=== PATIENT | male | born 1950 | race Caucasian/White ===

== ENCOUNTER 2016-10-21 18:17 | Emergency (ER) | payer MEDICAID, MEDICARE ==
[~2016-10-21] VITALS: Ht 167.6 cm; Wt 63.0 kg
[~2016-10-21 18:17] MED LIST: NAPROXEN PO
[2016-10-21] MEDS ORDERED: ACETAMINOPHEN 325MG TABLET PO ONE (19:30)
[2016-10-21 22:12] VITALS: BP 126/69
== END 2016-10-21 22:35 | disposition home or self-care (01) ==
LOC: ER 18:31
DX: S09.90XA Unspecified injury of head, initial encounter (principal); R10.9 Unspecified abdominal pain; F17.200 Nicotine dependence, unspecified, uncomplicated; Y04.2XXA Assault by strike against or bumped into by another person, initial encounter; Y93.89 Activity, other specified; Y92.89 Other specified places as the place of occurrence of the external cause; Y99.8 Other external cause status
CPT/HCPCS: 70450; 71010; 93005; 99284

== ENCOUNTER 2017-03-19 22:25 | Emergency (ER) | payer MEDICAID, MEDICARE ==
[~2017-03-19] VITALS: Ht 162.6 cm; Wt 70.0 kg
[2017-03-20] MEDS ORDERED: IBUPROFEN 600MG TABLET PO ONE (00:30)
[2017-03-20 01:30] VITALS: BP 96/56
== END 2017-03-20 01:47 | disposition home or self-care (01) ==
LOC: ER 22:25
DX: M25.572 Pain in left ankle and joints of left foot (principal); E11.9 Type 2 diabetes mellitus without complications; F17.200 Nicotine dependence, unspecified, uncomplicated; E78.00 Pure hypercholesterolemia, unspecified
CPT/HCPCS: 73610; 99284

== ENCOUNTER 2017-11-16 22:03 | Emergency (ER) | payer MEDICARE, OTHER ==
[~2017-11-16] VITALS: Ht 162.6 cm; Wt 77.6 kg
[2017-11-17 03:08] VITALS: BP 129/88
== END 2017-11-17 03:08 | disposition home or self-care (01) ==
LOC: ER 22:03
DX: S01.81XA Laceration without foreign body of other part of head, initial encounter (principal); F10.20 Alcohol dependence, uncomplicated; I10 Essential (primary) hypertension; Y08.89XA Assault by other specified means, initial encounter; Y93.01 Activity, walking, marching and hiking; Y92.89 Other specified places as the place of occurrence of the external cause
CPT/HCPCS: 12011; 70450; 70486; 99284

== ENCOUNTER 2018-02-21 19:19 | Emergency (ER) | payer SELFPAY ==
[~2018-02-21] VITALS: Ht 162.6 cm; Wt 72.0 kg
[2018-02-21] MEDS ORDERED: ACETAMINOPHEN 325MG TABLET PO ONE (20:00)
[2018-02-21 22:13] VITALS: BP 107/89
== END 2018-02-21 22:15 | disposition home or self-care (01) ==
LOC: ER 19:19
DX: S00.83XA Contusion of other part of head, initial encounter (principal); S90.02XA Contusion of left ankle, initial encounter; S60.211A Contusion of right wrist, initial encounter; E11.9 Type 2 diabetes mellitus without complications; I10 Essential (primary) hypertension; Z87.891 Personal history of nicotine dependence; W10.8XXA Fall (on) (from) other stairs and steps, initial encounter; Y93.89 Activity, other specified; Y92.018 Other place in single-family (private) house as the place of occurrence of the external cause
CPT/HCPCS: 73110; 73610; 99284

== ENCOUNTER 2018-06-20 08:51 | Emergency (ER) | payer SELFPAY ==
[~2018-06-20] VITALS: Ht 162.6 cm; Wt 71.0 kg
[2018-06-20 14:35] VITALS: BP 133/66
== END 2018-06-20 14:38 | disposition home or self-care (01) ==
LOC: ER 08:51
DX: S00.83XA Contusion of other part of head, initial encounter (principal); S50.12XA Contusion of left forearm, initial encounter; S50.812A Abrasion of left forearm, initial encounter; Y00.XXXA Assault by blunt object, initial encounter; Y93.89 Activity, other specified; Y92.018 Other place in single-family (private) house as the place of occurrence of the external cause
CPT/HCPCS: 73090; 73110; 99284

== ENCOUNTER 2018-10-05 20:41 | Emergency (ER) | payer SELFPAY ==
[~2018-10-05] VITALS: Ht 152.4 cm; Wt 70.0 kg
[2018-10-05] MEDS ORDERED: MORPHINE SULFATE 4 MG/ML CPJ (NOT FOR IM USE) IV ONE (21:30)
[2018-10-05] MEDS ORDERED: LIDOCAINE 1%/EPI 1:100,000 10 ML VIAL IJ ONE (21:45)
[2018-10-05] MEDS ORDERED: BACITRACIN ZINC OINT UDPKT TOP ONE (21:45)
[2018-10-05] MEDS ORDERED: LIDOCAINE HCL/EPINEPHRINE 1%-EPI 1:100,000 20 ML VIAL INFIL NR (23:00)
[2018-10-05] MEDS ORDERED: BACITRACIN 15GM TUBE TOP ONE (23:45)
[2018-10-06 03:03] VITALS: BP 123/68
== END 2018-10-06 03:08 | disposition home or self-care (01) ==
LOC: ER 21:45
DX: S06.9X1A Unspecified intracranial injury with loss of consciousness of 30 minutes or less, initial encounter (principal); S01.01XA Laceration without foreign body of scalp, initial encounter; S50.812A Abrasion of left forearm, initial encounter; Y00.XXXA Assault by blunt object, initial encounter; Y93.89 Activity, other specified; Y92.89 Other specified places as the place of occurrence of the external cause
CPT/HCPCS: 12002; 70450; 73552; 96374; 99284; J2270; J3490

== ENCOUNTER 2018-10-07 09:04 | Emergency (ER) | payer SELFPAY ==
[~2018-10-07] VITALS: Ht 162.6 cm; Wt 82.0 kg
[2018-10-07] MEDS ORDERED: SODIUM CHLORIDE 0.9% 1,000 ML IV ONE (11:44)
[2018-10-07] MEDS ORDERED: ONDANSETRON HCL 4MG/2ML INJ IV STA (11:44)
[2018-10-07 12:05] LABS: BASOPHILS % 0.3 % (0.0-2.0); EOSINOPHILS % 0.6 % (0.0-5.0); HEMATOCRIT. 39.9 % (42.0-52.0); HEMOGLOBIN. 13.7 g/dL (14.0-18.0); MEAN CORPUSCULAR VOLUME 93.4 fL (80.0-94.0); MEAN PLATELET VOLUME 8.1 fl (7.4-10.4); MONOCYTES % 7.7 % (2.0-8.0); NEUTROPHILS % 65.4 % (40.0-76.0); PLATELET 261 x1000/uL (130-400); RED BLOOD CELL COUNT 4.27 mill/uL (4.7-6.1); RED CELL DISTRIBUTION WIDTH 14.3 % (11.6-14.6)
[2018-10-07 12:11] LABS: CHLORIDE 106 mEq/L (98-107); INR 0.9; PROTHROMBIN TIME 9.7 sec (9.6-11.0)
[2018-10-07 12:15] LABS: ETHANOL BLOOD < 10 mg/dL
[2018-10-07 14:07] VITALS: BP 137/84
== END 2018-10-07 14:07 | disposition home or self-care (01) ==
LOC: ER 09:04
DX: S06.0X0A Concussion without loss of consciousness, initial encounter (principal); S01.01XD Laceration without foreign body of scalp, subsequent encounter; R42 Dizziness and giddiness; R11.2 Nausea with vomiting, unspecified; X58.XXXA Exposure to other specified factors, initial encounter; Y93.89 Activity, other specified; Y92.89 Other specified places as the place of occurrence of the external cause; Y99.8 Other external cause status
CPT/HCPCS: 36415; 70450; 80053; 80320; 85025; 85610; 96361; 96374; 99284; J2405; J7030; G0480

== ENCOUNTER 2018-10-28 22:29 | Emergency (ER) | payer MEDICARE ==
[~2018-10-28] VITALS: Ht 162.6 cm; Wt 80.0 kg
[2018-10-28 23:20] VITALS: BP 116/64
== END 2018-10-29 01:05 | disposition left against medical advice (07) ==
LOC: ER 22:29
DX: Z53.21 Procedure and treatment not carried out due to patient leaving prior to being seen by health care provider (principal)
CPT/HCPCS: 82962

== ENCOUNTER 2018-11-07 01:55 | Emergency (ER) | payer SELFPAY ==
[~2018-11-07] VITALS: Ht 162.6 cm; Wt 79.0 kg
[2018-11-07 02:13] VITALS: BP 104/68
[2018-11-07] MEDS ORDERED: IBUPROFEN 600MG TABLET PO STA (04:10)
== END 2018-11-07 06:34 | disposition left against medical advice (07) ==
LOC: ER 01:55
DX: S01.01XA Laceration without foreign body of scalp, initial encounter (principal); R51 Headache; Y93.E1 Activity, personal bathing and showering; Y92.091 Bathroom in other non-institutional residence as the place of occurrence of the external cause; M79.671 Pain in right foot
CPT/HCPCS: 99282

== ENCOUNTER 2018-11-24 21:00 | Emergency (ER) | payer MEDICARE ==
[~2018-11-24] VITALS: Ht 162.6 cm; Wt 72.0 kg
[2018-11-24 22:52] LABS: BASOPHILS % 0.6 % (0.0-2.0); EOSINOPHILS % 1.6 % (0.0-5.0); HEMATOCRIT. 39.3 % (42.0-52.0); HEMOGLOBIN. 13.7 g/dL (14.0-18.0); LYMPHOCYTES % 34.7 % (20.0-50.0); MEAN CORPUSCULAR HEMOGLOBIN 32.7 pg (28.0-32.0); MEAN PLATELET VOLUME 7.4 fl (7.4-10.4); MONOCYTES % 7.2 % (2.0-8.0); NEUTROPHILS % 55.9 % (40.0-76.0); PLATELET 257 x1000/uL (130-400); RED BLOOD CELL COUNT 4.18 mill/uL (4.7-6.1); RED CELL DISTRIBUTION WIDTH 13.3 % (11.6-14.6)
[2018-11-24 22:56] LABS: CHLORIDE 109 mEq/L (98-107)
[2018-11-24 23:00] LABS: ETHANOL BLOOD 79 mg/dL
[2018-11-25 00:40] LABS: *AMPHETAMINES SCREEN URINE NEGATIVE (NEGATIVE); *BARBITURATES SCREEN URINE NEGATIVE (NEGATIVE); *BENZODIAZEPINES SCREEN URINE NEGATIVE (NEGATIVE)
[2018-11-25 00:41] LABS: *COCAINE SCREEN URINE NEGATIVE (NEGATIVE); CANNABINOID URINE SCREEN NEGATIVE (NEGATIVE); METHADONE URINE SCREEN NEGATIVE (NEGATIVE); OPIATES URINE SCREEN NEGATIVE (NEGATIVE); PHENCYCLIDINE URINE SCREEN NEGATIVE (NEGATIVE)
[2018-11-25] MEDS ORDERED: ACETAMINOPHEN 650MG/20.3ML UDC PO NR (01:30)
[2018-11-25 02:54] VITALS: BP 103/51
== END 2018-11-25 02:56 | disposition home or self-care (01) ==
LOC: ER 21:00
DX: F10.129 Alcohol abuse with intoxication, unspecified (principal); Y90.9 Presence of alcohol in blood, level not specified; F12.90 Cannabis use, unspecified, uncomplicated; F15.10 Other stimulant abuse, uncomplicated; F17.200 Nicotine dependence, unspecified, uncomplicated
CPT/HCPCS: 36415; 80305; 80320; 83880; 84484; 93005; 99283; 99284; G0480

== ENCOUNTER 2019-01-10 03:38 | Emergency (ER) | payer MEDICARE ==
[~2019-01-10] VITALS: Ht 162.6 cm; Wt 78.0 kg
[2019-01-10 04:19] VITALS: BP 96/56
== END 2019-01-10 06:20 | disposition left against medical advice (07) ==
LOC: ER 03:38
DX: Z53.21 Procedure and treatment not carried out due to patient leaving prior to being seen by health care provider (principal)

== ENCOUNTER 2019-02-20 17:13 | Inpatient (IN) | payer MEDICARE ==
[~2019-02-20] VITALS: Ht 162.6 cm; Wt 77.6 kg
[2019-02-20] MEDS ORDERED: insulin (17:35)
[2019-02-20 18:23] LABS: BASOPHILS % 0.3 % (0.0-2.0); EOSINOPHILS % 0.1 % (0.0-5.0); HEMATOCRIT. 34.7 % (42.0-52.0); HEMOGLOBIN. 11.8 g/dL (14.0-18.0); LYMPHOCYTES % 11.4 % (20.0-50.0); MEAN CORPUSCULAR VOLUME 94.2 fL (80.0-94.0); MEAN PLATELET VOLUME 7.4 fl (7.4-10.4); NEUTROPHILS % 77.2 % (40.0-76.0); PLATELET 343 x1000/uL (130-400); RED BLOOD CELL COUNT 3.68 mill/uL (4.7-6.1); RED CELL DISTRIBUTION WIDTH 13.1 % (11.6-14.6)
[2019-02-20 18:29] LABS: PROTHROMBIN TIME 10.6 sec (9.6-11.0)
[2019-02-20 18:31] LABS: CHLORIDE 104 mEq/L (98-107)
[2019-02-20 18:35] LABS: ETHANOL BLOOD < 10 mg/dL
[2019-02-20] MEDS ORDERED: SODIUM CHLORIDE 0.9% 1,000 ML IV ONE (19:15)
[2019-02-20 21:40] LABS: CLARITY URINE CLEAR (CLEAR); COLOR URINE YELLOW (YELLOW); KETONES URINE NEGATIVE (NEGATIVE); LEUKOCYTE ESTERASE URINE NEGATIVE (NEGATIVE); NITRITE URINE NEGATIVE (NEGATIVE); OCCULT BLOOD URINE NEGATIVE (NEGATIVE); PH URINE 5.5 (4.5-8.0); PROTEIN URINE NEGATIVE (NEGATIVE); SPECIFIC GRAVITY URINE 1.017 (1.005-1.030)
[2019-02-20 22:07] LABS: *AMPHETAMINES SCREEN URINE NEGATIVE (NEGATIVE); *BARBITURATES SCREEN URINE NEGATIVE (NEGATIVE); *BENZODIAZEPINES SCREEN URINE NEGATIVE (NEGATIVE); *COCAINE SCREEN URINE NEGATIVE (NEGATIVE); CANNABINOID URINE SCREEN NEGATIVE (NEGATIVE); METHADONE URINE SCREEN NEGATIVE (NEGATIVE); OPIATES URINE SCREEN NEGATIVE (NEGATIVE); PHENCYCLIDINE URINE SCREEN NEGATIVE (NEGATIVE)
[2019-02-21] VITALS: BP 113/61
[2019-02-21 00:36] VITALS: BP 126/66
[2019-02-21] MEDS ORDERED: CLONIDINE 0.1MG TABLET PO PRN (01:15)
[2019-02-21] MEDS ORDERED: HYDROCODONE/ACETAMINOPHEN 5/325MG TABLET PO PRN (01:15)
[2019-02-21] MEDS ORDERED: MAGNESIUM/ALUMINUM HYDROXIDE/SIMETHICONE 30ML UDC PO PRN (01:15)
[2019-02-21] MEDS ORDERED: ONDANSETRON HCL 4MG/2ML INJ IV PRN (01:15)
[2019-02-21] MEDS ORDERED: ACETAMINOPHEN 325MG TABLET PO PRN (01:15)
[2019-02-21 04:00] VITALS: BP 112/69
[2019-02-21 06:18] LABS: CREATINE KINASE 73 IU/L (39-308)
[2019-02-21 08:00] VITALS: BP 125/75
[2019-02-21] MEDS ORDERED: ASPIRIN 81MG EC TABLET PO SCH (09:00)
[2019-02-21] MEDS ORDERED: AMLODIPINE 10MG TABLET PO SCH (09:00)
[2019-02-21 12:00] VITALS: BP 121/70
== END 2019-02-21 16:20 | disposition home or self-care (01) | DRG 73 ==
LOC: ER 19:30 → 7WST 19:38 → ENRESERV 21:03
PROVIDERS: ADMIT Hospitalist; ATTEND Hospitalist
DX: G90.8 Other disorders of autonomic nervous system (principal); E43 Unspecified severe protein-calorie malnutrition; D64.9 Anemia, unspecified; Y93.01 Activity, walking, marching and hiking; W18.30XA Fall on same level, unspecified, initial encounter; E11.9 Type 2 diabetes mellitus without complications; S09.90XA Unspecified injury of head, initial encounter; Y92.89 Other specified places as the place of occurrence of the external cause; Y99.8 Other external cause status
CPT/HCPCS: 36415; 71046; 80305; 80320; 81003; 82550; 84484; 93005; 93306; 93970; 99285; J7030; G0480

== ENCOUNTER 2019-03-23 12:43 | Emergency (ER) | payer MEDICARE ==
[~2019-03-23] VITALS: Ht 167.6 cm; Wt 82.0 kg
[~2019-03-23 12:43] MED LIST changes: -NAPROXEN PO; +insulin
[2019-03-23] MEDS ORDERED: IBUPROFEN 400MG TABLET PO ONE (13:15)
[2019-03-23 14:44] VITALS: BP 118/76
== END 2019-03-23 14:51 | disposition home or self-care (01) ==
LOC: ER 13:37
DX: S01.412A Laceration without foreign body of left cheek and temporomandibular area, initial encounter (principal); Y04.0XXA Assault by unarmed brawl or fight, initial encounter; Y93.89 Activity, other specified; Y92.488 Other paved roadways as the place of occurrence of the external cause
CPT/HCPCS: 70486; 99284